=== PATIENT | female | born 1950 | race Two or more races ===

== ENCOUNTER 2018-10-07 08:54 | Outpatient (CLI) | payer OTHER | END 2018-10-07 08:56 | disposition home or self-care (01) | LOC: SONOGRAMA 08:54 → MAMO-SONO 09:15 | DX: N84.0 Polyp of corpus uteri (principal) ==

== ENCOUNTER 2018-11-14 09:04 | Day surgery (SDC) | payer OTHER ==
[~2018-11-14 09:04] MED LIST: COZAAR25 MG PO
== END 2018-11-14 20:35 | disposition home or self-care (01) ==
LOC: ADM 09:04 → CIR.AMB 09:04 → ADM 09:45 → CIR.AMB 20:35
DX: N84.0 Polyp of corpus uteri (principal)